=== PATIENT | female | born 1995 | race Asian ===

== ENCOUNTER 2017-07-11 00:25 | Inpatient (IN) | payer SELFPAY ==
[~2017-07-11] VITALS: Ht 158 cm; Wt 34.5 kg
[2017-07-11] MEDS ORDERED: PREN1SGL25 PO (01:46)
[2017-07-11] MEDS ORDERED: FERR-252 PO (01:47)
[2017-07-11] MEDS ORDERED: METHYLERGONOVINE 0.2 MG/ML AMP IM PRN ×2 (01:50→02:25)
[2017-07-11] MEDS ORDERED: LACTATED RINGERS 1,000 ML IV SCH (02:22)
[2017-07-11] MEDS ORDERED: NACL 0.9% 500 ML IV SCH (02:22)
[2017-07-11] MEDS ORDERED: NACL 0.9% 1,000 ML IV SCH (02:22)
[2017-07-11] MEDS ORDERED: BLOOD GLUCOSE MONITORING 1 DEV DEV FS SCH ×3 (02:25→04:00)
[2017-07-11] MEDS ORDERED: LACTATED RINGERS 500 ML IV SCH (02:25)
[2017-07-11] MEDS ORDERED: PROMETHAZINE 25 MG/ML VIAL IVP SCH (02:25)
[2017-07-11] MEDS ORDERED: PROMETHAZINE 25 MG/ML VIAL IVP PRN (02:25)
[2017-07-11] MEDS ORDERED: CARBOPROST 250 MCG/ML AMP IM PRN (02:25)
[2017-07-11] MEDS ORDERED: NALBUPHINE HYDROCHLORIDE 10 MG/ML VIAL IVP SCH (02:25)
[2017-07-11] MEDS ORDERED: OXYTOCIN 10 UNITS/ML VIAL IM SCH ×2 (02:25)
[2017-07-11] MEDS ORDERED: NALBUPHINE HYDROCHLORIDE 10 MG/ML VIAL IVP PRN (02:25)
[2017-07-11] MEDS ORDERED: NALBUPHINE HYDROCHLORIDE 10 MG/ML VIAL IM SCH (02:25)
[2017-07-11 03:11] LABS: BILIRUBIN,URINE NEGATIVE (NEGATIVE); BLOOD, URINE NEGATIVE (NEGATIVE); COLOR,URINE YELLOW (YELLOW); LEUKOCYTE ESTERASE ,URINE NEGATIVE (NEGATIVE); NITRITE, URINE NEGATIVE (NEGATIVE); UGLUCOSE NEGATIVE (NEGATIVE)
[2017-07-11 03:11] LABS: BASOPHILS # (AUTO) 0.1 K/uL (0.00-0.22); BASOPHILS % (AUTO) 1.3 % (0.0-2.0); EOSINOPHILS # (AUTO) 0.1 K/uL (0-0.4); EOSINOPHILS % (AUTO) 0.7 % (0.0-4.0); HEMATOCRIT 37.9 % (36-48); HEMOGLOBIN 12.8 g/dL (12.0-16.0); LYMPHOCYTES # (AUTO) 1.9 K/uL (2.5-16.5); LYMPHOCYTES % (AUTO) 17.7 % (20.5-51.1); MEAN CORPUSCULAR HEMOGLOBIN 31 pg (27-31); MEAN CORPUSCULAR HGB CONC 34 g/dL (33-37); MEAN CORPUSCULAR VOLUME 90 fL (80-94); MONOCYTES # (AUTO) 0.7 K/uL (0.8-1.0); MONOCYTES % (AUTO) 6.9 % (1.7-9.3); NEUTROPHILS # (AUTO) 7.9 K/uL (1.8-7.7); NEUTROPHILS % (AUTO) 73.4 % (42.2-75.2); PLATELET COUNT (AUTO) 143 K/uL (140-450); RED BLOOD CELL COUNT(AUTO) 4.22 MIL/uL (4.20-5.40); RED CELL DISTRIBUTION WIDTH 13.7 % (11.6-13.7); WHITE BLOOD COUNT (AUTO) 10.7 K/uL (4.8-10.8)
[2017-07-11] MEDS ORDERED: OXYTOCIN 20 UNITS in LACTATED RINGERS 1,000 ML IV SCH (03:30)
[2017-07-11 03:31] LABS: ALBUMIN 2.5 g/dL (3.4-5.0); CARBON DIOXIDE 23.4 mmol/L (21-32); CREATININE 0.5 mg/dL (0.6-1.3); POTASSIUM 3.4 mmol/L (3.5-5.1); TOTAL BILIRUBIN 0.8 mg/dL (0.0-1.0)
[2017-07-11] MEDS ORDERED: MISOPROSTOL 25 MCG TAB ONE (03:36)
[2017-07-11 03:37] LABS: APPEARANCE,URINE SLIGHTLY HAZY (CLEAR)
[2017-07-11 03:38] LABS: RBC,URINE 0-5 (RARE) /HPF (0-5); WBC,URINE 0-5 (RARE) /HPF (0-5)
[2017-07-11 03:39] LABS: URINE AMORPHOUS URATE 1+ /HPF (None Seen)
[2017-07-11] MEDS ORDERED: MISOPROSTOL 25 MCG TAB VG SCH (04:00)
--- NOTE | 2017-07-11 09:11 | NUR ---
PATIENT HAS BEEN SCREENED AND CATEGORIZED LOW NUTRITION RISK. PATIENT WILL BE SEEN WITHIN 7 DAYS OF ADMISSION. 07/17/[address]
[2017-07-11 09:37] LABS: RAPID PLASMA REAGIN NON-REACTIVE (Non Reactiv)
[2017-07-11] MEDS: LACTATED RINGERS 1,000 ML IV SCH ×2 (19:30→20:30)
[2017-07-11] MEDS ORDERED: ROPIVACAINE 0.2%/NS PREMIX 250 ML EPI ONE (20:29)
[2017-07-11] MEDS ORDERED: OXYTOCIN 10 UNITS/ML VIAL ONE (21:15)
[2017-07-12] MEDS ORDERED: ceFAZolin 1,000 MG VIAL ONE (02:00)
[2017-07-12] MEDS ORDERED: CITRIC ACID/SODIUM CITRATE 30 ML UDC ONE (02:01)
[2017-07-12] MEDS ORDERED: METHYLERGONOVINE 0.2 MG/ML AMP IM PRN (02:15)
[2017-07-12] MEDS ORDERED: HYDROcodone/APAP 5/325 MG 1 TAB TAB PO PRN (02:15)
[2017-07-12] MEDS ORDERED: OXYTOCIN 10 UNITS/ML VIAL ONE ×2 (02:15→02:29)
[2017-07-12] MEDS ORDERED: MEASLES, MUMPS, AND RUBELLA 1 VIAL SQVAC PRN (02:15)
[2017-07-12] MEDS ORDERED: LIDOCAINE/EPI 2% 1:100000 20 ML VIAL INJ ONE (02:15)
[2017-07-12] MEDS ORDERED: IBUPROFEN 800 MG TAB PO PRN (02:15)
[2017-07-12] MEDS ORDERED: SIMETHICONE 80 MG TAB.CHEW PO PRN (02:15)
[2017-07-12] MEDS ORDERED: TRIMETHOBENZAMIDE 200 MG/2 ML SYR IM PRN (02:15)
[2017-07-12] MEDS ORDERED: ONDANSETRON 4 MG/2 ML VIAL ONE (02:15)
[2017-07-12] MEDS ORDERED: oxyCODONE/APAP 5/325 MG 1 TAB TAB PO PRN (02:15)
[2017-07-12] MEDS ORDERED: TEMAZEPAM 15 MG CAP PO PRN (02:15)
[2017-07-12] MEDS ORDERED: TRIAMCINOLONE 40 MG/ML 5ML VIAL ONE (02:29)
[2017-07-12] MEDS ORDERED: MIDAZOLAM 2 MG/2 ML VIAL ONE (02:36)
[2017-07-12] MEDS ORDERED: KETAMINE 500 MG/5 ML VIAL ONE (02:36)
[2017-07-12] MEDS ORDERED: fentaNYL 0.05 MG/ML VIAL ONE (02:36)
[2017-07-12] MEDS ORDERED: MORPHINE PRES FREE 10 MG/10 ML AMP IV ONE (02:37)
[2017-07-12] MEDS ORDERED: diphenhydrAMINE 50 MG/ML VIAL ONE (03:00)
[2017-07-12] MEDS ORDERED: OXYTOCIN 20 UNITS/LR PREMIX 1,000 ML IV ONE (03:00)
[2017-07-12] MEDS ORDERED: diphenhydrAMINE 50 MG/ML VIAL IVP PRN (03:15)
[2017-07-12] MEDS ORDERED: KETOROLAC 30 MG/ML VIAL IVP PRN (03:15)
[2017-07-12] MEDS ORDERED: ONDANSETRON 4 MG/2 ML VIAL IVP PRN (03:15)
[2017-07-12] MEDS: OXYTOCIN 20 UNITS in LACTATED RINGERS 1,000 ML IV SCH ×2 (10:54→18:37)
[2017-07-12] MEDS ORDERED: DOCUSATE SOD/SENNA 50/8.6 MG 1 TAB PO SCH (21:00)
[2017-07-13 06:18] LABS: HEMATOCRIT 33.2 % (36-48); MEAN CORPUSCULAR HEMOGLOBIN 30 pg (27-31); MEAN CORPUSCULAR HGB CONC 33 g/dL (33-37); MEAN CORPUSCULAR VOLUME 91 fL (80-94); PLATELET COUNT (AUTO) 192 K/uL (140-450); RED BLOOD CELL COUNT(AUTO) 3.65 MIL/uL (4.20-5.40); RED CELL DISTRIBUTION WIDTH 13.6 % (11.6-13.7); WHITE BLOOD COUNT (AUTO) 15.8 K/uL (4.8-10.8)
[2017-07-13 06:49] LABS: LYMPHOCYTES % (MANUAL) 9 % (20-46); MONOCYTES % (MANUAL) 5 % (5-12)
[2017-07-13] MEDS ORDERED: INFLUENZA VIRUS VACCINE QUAD 0.5 ML SYR IMVAC SCH (21:40)
[2017-07-15] MEDS ORDERED: IBUP-2217 PO (09:44)
== END 2017-07-15 17:00 | disposition home or self-care (01) | DRG 766 ==
LOC: MLD 00:25 → MFCC 07-12 03:00
PROVIDERS: ADMIT Obstetrics & Gynecology; ATTEND Obstetrics & Gynecology
PROC: 10D00Z1 Extraction of Products of Conception, Low, Open Approach (ICD-10-PCS; principal; 2017-07-12 02:15)
DX: O62.2 Other uterine inertia (principal); Z37.0 Single live birth; Z3A.40 40 weeks gestation of pregnancy
CPT/HCPCS: 36415; 51702; 59200; 80053; 81001; 85025; 86592; 86886; 86900; 86901; 87086; 90658; 90715; J0690; J1200; J2001; J2250; J2270; J2405; J2590; J2795; J3010; J3301; J7120